=== PATIENT | male | born 1965 | race Two or more races ===

== ENCOUNTER 2024-05-14 18:01 | Inpatient (IN) | payer MEDICAID, OTHER ==
[2024-05-14 18:43] LABS: BASOPHILS % (AUTO) 0.4 % (0.0-2.0); HEMATOCRIT 44.8 % (41-53); HEMOGLOBIN 14.9 g/dL (13.5-17.5); LYMPHOCYTES # (AUTO) 3.5 K/uL (1.0-4.8); LYMPHOCYTES % (AUTO) 42.9 % (22.0-44.0); MEAN CORPUSCULAR HEMOGLOBIN 29.8 pg (26.0-34.0); MEAN CORPUSCULAR HGB CONC 33.2 G/dL (31.0-37.0); MEAN CORPUSCULAR VOLUME 90 fL (80-100); MONOCYTES # (AUTO) 0.7 K/uL (0.1-1.0); MONOCYTES % (AUTO) 8.2 % (2.0-9.0); NEUTROPHILS # (AUTO) 3.8 K/uL (1.8-7.7); NEUTROPHILS % (AUTO) 46.5 % (40.0-70.0); PLATELET COUNT (AUTO) 214 K/uL (150-450); RED CELL DISTRIBUTION WIDTH 13.3 % (11.5-14.5); WHITE BLOOD COUNT (AUTO) 8.2 K/uL (4.5-11.0)
[2024-05-14 19:00] LABS: TROPONIN I-HIGH SENSITIVITY 5 ng/L (<76)
[2024-05-14 19:08] LABS: B-TYPE NATRIURETIC PEPTIDE 39 pg/mL (0-100)
[2024-05-14 19:17] LABS: ALANINE AMINOTRANSFERASE 21 U/L (12-78); ALBUMIN 3.3 g/dL (3.4-5.0); ALKALINE PHOSPHATASE 95 U/L (46-116); ANION GAP 7 mmol/L (8-16); ASPARTATE AMINOTRANSFERASE 14 U/L (15-37); BILIRUBIN,TOTAL 0.3 mg/dL (0.1-1.0); CALCIUM, TOTAL 8.6 mg/dL (8.8-10.5); CARBON DIOXIDE 27 mmol/L (22-29); CHLORIDE 98 mmol/L (98-107); CREATINE KINASE, TOTAL ONLY 109 U/L (39-308); CREATININE 1.21 mg/dL (0.60-1.30); GLOMERULAR FILTR. RATE CALC > 60 mL/min (>60); POTASSIUM 4.3 mmol/L (3.5-5.1); SODIUM SERUM 132 mmol/L (136-145); TOTAL PROTEIN, SERUM 6.7 g/dL (6.4-8.2); UREA NITROGEN, BLOOD 14 mg/dL (7-18)
[2024-05-14 19:20] LABS: GLUCOSE,RANDOM 524 mg/dL (70-110)
[2024-05-14] MEDS: ACETAMINOPHEN 500 MG TABLET PO ONE (20:14)
[2024-05-14] MEDS: SODIUM CHLORIDE 0.9% 1,000 ML IV ONE (20:14)
[2024-05-14] MEDS: INSULIN LISPRO 100 UNITS/ML SQ ONE (20:18)
[2024-05-14] MEDS ORDERED: DEXTROSE 50%-WATER 25 GM/50 ML SYRINGE IVP PRN (20:45)
[2024-05-14] MEDS ORDERED: ZOLPIDEM TARTRATE 5 MG TABLET PO PRN (20:45)
[2024-05-14] MEDS ORDERED: MAGNESIUM HYDROXIDE SUSPENSION 30 ML UDCUP PO PRN (20:45)
[2024-05-14] MEDS: MetFORMIN HCL 500 MG TABLET PO ONE (20:50)
[2024-05-14 22:14] VITALS: BP 169/78; PULSE 61; RESP 18; TEMP 98.2; O2SAT 96
[2024-05-14 22:31] LABS: TROPONIN I-HIGH SENSITIVITY 6 ng/L (<76)
[2024-05-14] MEDS: HEPARIN SODIUM,PORCINE 5,000 UNITS/ML VIAL SQ SCH (23:21)
[2024-05-14] MEDS: ACETAMINOPHEN 325 MG TABLET PO PRN (23:25)
[2024-05-14 23:30] LABS: APPEARANCE,URINE CLEAR (CLEAR); BILIRUBIN,URINE NEGATIVE (NEGATIVE); COLOR,URINE COLORLESS (YELLOW); GLUCOSE, URINE (UA) >=1000 mg/dL (NEGATIVE); KETONES,URINE NEGATIVE (NEGATIVE); LEUKOCYTE ESTERASE ,URINE NEGATIVE (NEGATIVE); NITRATE,URINE NEGATIVE (NEGATIVE); OCCULT BLOOD,URINE NEGATIVE (NEGATIVE); PH,URINE 6.5 (5.0-8.0); PROTEIN,URINE NEGATIVE (NEGATIVE); SPECIFIC GRAVITIY, URINE 1.028 (1.003-1.030); UROBILINOGEN,URINE <=1.0 mg/dL (<=1.0)
[2024-05-14 23:33] LABS: BACTERIA,URINE None Seen /HPF (None Seen); RBC,URINE None Seen /HPF (0-2); SQUAMOUS EPITHELIAL CELL,UR Few /LPF (None Seen); WBC,URINE None Seen /HPF (0-5)
[2024-05-15 05:07] VITALS: BP 160/76; PULSE 54; RESP 18; TEMP 97.7; O2SAT 97
[2024-05-15] MEDS: INSULIN LISPRO 100 UNITS/ML SQ PRN (05:39)
[2024-05-15 06:26] LABS: GLUCOMETER DEV NAME(LOC) 6N.2B; GLUCOSE,POINT OF CARE 220 MG/DL (70-110)
[2024-05-15] MEDS: FAMOTIDINE 20 MG TABLET PO SCH (08:40)
[2024-05-15] MEDS: MetFORMIN HCL 500 MG TABLET PO SCH (08:41)
[2024-05-15 09:31] VITALS: BP 164/79; PULSE 58; RESP 18; TEMP 97.5; O2SAT 96
[2024-05-15 12:05] LABS: GLUCOMETER DEV NAME(LOC) 6S.2; GLUCOSE,POINT OF CARE 270 MG/DL (70-110)
[2024-05-15] MEDS ORDERED: INSU100V SQ (12:51)
[2024-05-15] MEDS ORDERED: METF-1211 PO (12:53)
[2024-05-15] MEDS ORDERED: ACET-2247 PO (12:53)
== END 2024-05-15 16:04 | DRG 639 ==
LOC: EMS 18:01 → EDH 20:42 → 6S 21:43
PROVIDERS: ADMIT Internal Medicine; ATTEND Internal Medicine
DX: E11.65 Type 2 diabetes mellitus with hyperglycemia (principal); E66.9 Obesity, unspecified; R07.9 Chest pain, unspecified; Z83.3 Family history of diabetes mellitus
CPT/HCPCS: 71045; 80048; 80076; 81001; 82550; 82962; 83880; 84484; 85025; 93005; 99285; J1644; J1815; 36415-L1; 36415-TC